=== PATIENT | male | born 1980 | race Caucasian/White ===

== ENCOUNTER 2016-08-14 08:37 | Emergency (ER) | payer SELFPAY ==
[~2016-08-14] VITALS: Ht 175.3 cm; Wt 75.8 kg
[~2016-08-14 08:37] MED LIST: FIORICET WI1 CAPSULE PO; INDOCIN25 MG PO; NAPROXEN500 MG PO; NOHOMEMEDS; NORCO 7.5/321 TABLET PO; PREDNISONE10 M1 PO; PREDNISONE20 MG PO; VALIUM5 MG PO; ZITHROMAX Z-PA250 MG PO
[2016-08-14] MEDS ORDERED: TUSNEL CAPSULE1 EACH PO (12:17)
[2016-08-14] MEDS ORDERED: NAPROSYN500 MG PO (12:17)
[2016-08-14 12:33] VITALS: BP 127/87
== END 2016-08-14 12:35 | disposition home or self-care (01) ==
LOC: EME 08:37
DX: G43.909 Migraine, unspecified, not intractable, without status migrainosus (principal); R09.81 Nasal congestion; M54.2 Cervicalgia; R05 Cough; F17.200 Nicotine dependence, unspecified, uncomplicated
CPT/HCPCS: 99281; 99284; J1200; J1885; J2765; J7030

== ENCOUNTER 2017-02-25 21:19 | Emergency (ER) | payer SELFPAY ==
[~2017-02-25] VITALS: Ht 175.3 cm; Wt 73.3 kg
[~2017-02-25 21:19] MED LIST changes: +NAPROSYN500 MG PO; +TUSNEL CAPSULE1 EACH PO
[2017-02-25] MEDS ORDERED: FIORICET 50-301 EACH PO (23:09)
[2017-02-26 00:11] VITALS: BP 142/84
== END 2017-02-26 00:13 | disposition home or self-care (01) ==
LOC: EME 21:19
DX: G43.909 Migraine, unspecified, not intractable, without status migrainosus (principal); F17.200 Nicotine dependence, unspecified, uncomplicated
CPT/HCPCS: 99281; 99283; J1885; J3010

== ENCOUNTER 2017-08-04 00:04 | Emergency (ER) | payer SELFPAY ==
[~2017-08-04] VITALS: Ht 175.3 cm; Wt 74.7 kg
[~2017-08-04 00:04] MED LIST changes: +FIORICET 50-301 EACH PO
[2017-08-04] MEDS ORDERED: PREDNISONE20 MG PO (01:29)
[2017-08-04] MEDS ORDERED: ZITHROMAX Z-PA250 MG PO (01:29)
[2017-08-04 01:42] VITALS: BP 143/90
== END 2017-08-04 01:42 | disposition home or self-care (01) ==
LOC: EME 00:04
PROVIDERS: Emergency Medicine
DX: J20.9 Acute bronchitis, unspecified (principal); J06.9 Acute upper respiratory infection, unspecified; F17.200 Nicotine dependence, unspecified, uncomplicated
CPT/HCPCS: 71046; 87502; 87651 90; 94640; 99281; 99284; J8540

== ENCOUNTER 2017-08-27 11:06 | Emergency (ER) | payer SELFPAY ==
[~2017-08-27] VITALS: Ht 175.3 cm; Wt 73.6 kg
[2017-08-27 12:29] VITALS: BP 124/85
== END 2017-08-27 12:30 | disposition home or self-care (01) ==
LOC: EME 11:06
DX: S01.511D Laceration without foreign body of lip, subsequent encounter (principal); W22.09XD Striking against other stationary object, subsequent encounter; F17.200 Nicotine dependence, unspecified, uncomplicated; Z88.8 Allergy status to other drugs, medicaments and biological substances
CPT/HCPCS: 99281; 99284